=== PATIENT | male | born 1965 | race Two or more races ===

== ENCOUNTER 2022-01-05 00:10 | Inpatient (IN) | payer MEDICAID, OTHER ==
[~2022-01-05] VITALS: Ht 170.2 cm; Wt 109.0 kg
[2022-01-05 01:00] LABS: Basophils # (auto) 0.1 10 ^3/uL (0-0.2); Basophils % (auto) 0.4 % (0.0-2.0); Eosinophils # (auto) 0 10 ^3/uL (0-0.8); Hemoglobin 15.5 g/dL (13.5-17.5); Lymphocytes % (auto) 8.8 % (10.0-50.0); Mean Corpuscular Hemoglobin 30.2 pg (28.0-32.0); Mean Corpuscular Hgb Conc. 33.6 g/dL (32.0-36.0); Monocytes # (auto) 2.6 10 ^3/uL (0-1.3); Monocytes % (auto) 11.3 % (0.0-12.0); Neutrophils # (auto) 17.9 10 ^3/uL (1.6-8.6); Neutrophils % (auto) 79.5 % (37.0-80.0); Red Blood Cells 5.12 10^6/uL (4.5-5.90); White Blood Cell 22.5 10^3/uL (4.4-10.8)
[2022-01-05 01:17] LABS: INR 1.28 (0.9-1.15); Partial Thromboplastin Time 32.2 sec (24.6-33.4)
[2022-01-05 01:19] LABS: BUN/Creatinine Ratio 7.3; Calcium 7.8 mg/dL (8.5-10.1); Magnesium 1.9 mg/dL (1.6-2.6)
[2022-01-05 01:22] LABS: Bilirubin, Total 0.8 mg/dL (0.2-1.0); Total Protein 7.3 g/dL (6.4-8.2)
[2022-01-05] MEDS ORDERED: AZITHROMYCIN 500MG/ 250ML 250 ML IV ONE (02:30)
[2022-01-05] MEDS ORDERED: cefTRIAXone 1GM/50ML D5W 50 ML IV ONE (02:30)
[2022-01-05] MEDS ORDERED: SODIUM CHLORIDE 0.9% 1,000 ML IV ONE (03:00)
[2022-01-05] MEDS ORDERED: ACETAMINOPHEN 325 MG TAB PO PRN (05:45)
[2022-01-05] MEDS ORDERED: ONDANSETRON HCL 4 MG/2 ML VIAL IV PRN (05:45)
[2022-01-05 05:59] LABS: Urine Bacteria FEW /hpf (None Seen); Urine Blood Negative /uL (Negative); Urine Hyaline Cast MANY /lpf (0 - 2); Urine Mucus FEW (None Seen); Urine Specific Gravity 1.023 (1.001-1.035); Urine WBC 2 /hpf (0 - 3)
[2022-01-05 06:05] LABS: Lactic Acid w/Reflex 2.7 mmol/L (0.4-2.0)
[2022-01-05] MEDS ORDERED: cefTRIAXone 1GM/50ML D5W 50 ML IV SCH (09:00)
[2022-01-05] MEDS ORDERED: AZITHROMYCIN 500MG/ 250ML 250 ML IV SCH (10:00)
[2022-01-05] MEDS ORDERED: PANTOPRAZOLE 40 MG TAB PO SCH (10:00)
[2022-01-05] MEDS ORDERED: LISINOPRIL 10 MG TAB PO SCH (10:00)
[2022-01-05 13:00] VITALS: BP 113/46
== END 2022-01-05 19:38 | disposition left against medical advice (07) | DRG 720 ==
LOC: EDBD 00:10 → EDSEX 00:10 → ER 00:10 → OVERFLOW 05:41
PROVIDERS: ADMIT Nurse Practitioner; ATTEND Student in an Organized Health Care Education/Training Program
DX: A41.9 Sepsis, unspecified organism (principal); N17.9 Acute kidney failure, unspecified; E44.0 Moderate protein-calorie malnutrition; J18.9 Pneumonia, unspecified organism; R91.8 Other nonspecific abnormal finding of lung field; E66.9 Obesity, unspecified; F17.200 Nicotine dependence, unspecified, uncomplicated; Z20.822 Contact with and (suspected) exposure to COVID-19; Z53.29 Procedure and treatment not carried out because of patient's decision for other reasons; N18.9 Chronic kidney disease, unspecified; I12.9 Hypertensive chronic kidney disease with stage 1 through stage 4 chronic kidney disease, or unspecified chronic kidney disease; Z68.37 Body mass index [BMI] 37.0-37.9, adult
CPT/HCPCS: 36415; 71045; 71250; 80053; 81001; 83605; 83735; 83880; 84484; 85025; 85610; 85730; 87426; 93005; 96365; 96366; 96367; G0378; J0696